=== PATIENT | male | born 2000 | race Caucasian/White ===

== ENCOUNTER → 2024-04-16 10:31 | Outpatient (BNVA) | payer BC, SELFPAY | PROVIDERS: Family Provider Family Medicine; PCP Family Medicine; Visit Provider Family Medicine | DX: M25.50 Pain in unspecified joint (principal); R53.81 Other malaise; R53.83 Other fatigue; Z51.81 Encounter for therapeutic drug level monitoring | CPT/HCPCS: 80053; 84443; 85025; 85651; 86038; 86141; 86431 ==

== ENCOUNTER → 2024-12-04 15:38 | Outpatient (BNVA) | payer BC, SELFPAY | PROVIDERS: Family Provider Family Medicine; PCP Family Medicine; Visit Provider Family Medicine | DX: R35.0 Frequency of micturition (principal); R30.0 Dysuria | CPT/HCPCS: 81000; 87086 ==

== ENCOUNTER 2024-12-24 16:18 | Outpatient (CLI) | payer BC, SELFPAY ==
--- NOTE | 2024-12-24 16:45 | US_ITS ---
WS: [id number] RENAL ULTRASOUND URINARY BLADDER ULTRASOUND HISTORY: Urinary frequency, bladder spasms [id number] COMPARISON: None available. TECHNIQUE: 2-D and color Doppler imaging of the kidney submitted. Right kidney: 10.2 cm x 4.9 cm x 4.8 cm. Normal echogenicity with no hydronephrosis or mass. Left kidney: 11.2 cm x 5.3 cm x 4.7 cm. Normal echogenicity with no hydronephrosis or mass. Aorta: Normal. Urinary Bladder: Normal distention. Prevoid volume: 619 mL. Post void volume: 16 mL. US/US renal BI w/PV bladder [id number] IMPRESSION: 1. Normal renal ultrasound. No hydronephrosis or mass. 2. Normally distended urinary bladder. 3. No significant post void residual in the urinary bladder.
== END 2024-12-24 16:19 | disposition home or self-care (01) ==
LOC: RAD 16:25
PROVIDERS: PCP Family Medicine; Visit Provider Family Medicine
DX: R35.0 Frequency of micturition (principal); R31.9 Hematuria, unspecified
CPT/HCPCS: 76770; 76857; 80053; 83036; 85025